=== PATIENT | female | born 1980 | race Caucasian/White ===

== ENCOUNTER 2017-03-13 18:22 | Inpatient (IN) | payer OTHER ==
[~2017-03-13] VITALS: Ht 170.2 cm; Wt 68.0 kg
--- NOTE | 2017-03-13 18:39 | NUR ---
PT STATES SHE IS GOING THROUGHT WITHDRAWELS FROM ETOH. PT STATES LAST DRINK WAS THIS AM SHE HAD 3 BEERS. PT STATES THE REHAB CENTER SENT HER HERE BECAUSE SHE IS HAVING THE SHAKES AND VOMITING. PT STATES SHE HAS HAD WITHDRAWEL SEIZURES MAY OF LAST YEAR. PT HAS BEEN DOING IOP AT [facility] SO SHE WAS TRYING TO CHECK INTO REHAB FOR 21 DAYS BUT STATES THEY THOUGHT SHE NEEDED TO GO TO ED. PT STATE THEY TOLD HER ONCE SHE IS MEDICALY CLEARED THEY WOULD TAKE SEND A CAR FOR HER FOR HER 21 DAYS PROGRAM
--- NOTE | 2017-03-13 18:40 | NUR ---
PT DENIES SI/HI
--- NOTE | 2017-03-13 19:06 | ED PSYCHIATRIC COMPLAINT ---
History of Present Illness General Chief Complaint: ETOH/Drug Related Complaint Stated Complaint: DETOX Source: patient Exam Limitations: no limitations Vital Signs & Intake/Output Vital Signs & Intake/Output Vital Signs Date Time Temp Pulse Resp B/P B/P Pulse O2 O2 Flow FiO2 Mean Ox Delivery Rate 03/14 0620 97.7 82 18 161/80 05 0615 97.7 82 18 161/80 98 Room Air 03/14 0420 97.0 88 18 153/85 03/14 0412 97.0 88 18 153/85 98 Room Air 03/14 0200 97.6 101 20 144/90 03/14 0200 97.6 101 20 144/90 97 Room Air Room Air 03/14 0038 96.9 115 18 156/97 96 Room Air 03/14 0020 96.9 115 18 156/97 03/13 2220 98.0 98 16 162/98 03/13 1952 98.2 99 20 147/75 03/13 1840 98.7 130 16 144/94 97 Room Air ED Intake and Output 03/14 0000 03/13 1200 Intake Total Output Total Balance Patient 150 lb Weight Weight Reported by Patient Measurement Method Allergies Coded Allergies: No Known Allergies (03/13/17) Reconcile Medications Chlordiazepoxide HCl 10 MG CAPSULE 1 TAB PO TID ANXIETY (Reported) Fluticasone Propionate 50 MCG/ACTUATION SPRAY.SUSP 2 SPRAY NASB DAILY CONGESTION (Reported) Folic Acid 1 MG TABLET 1 TAB PO DAILY VITAMIN (Reported) Quetiapine Fumarate 25 MG TABLET 1 TAB PO QPM ANXIETY (Reported) Triage Note: PT STATES SHE IS GOING THROUGHT WITHDRAWELS FROM ETOH. PT STATES LAST DRINK WAS THIS AM SHE HAD 3 BEERS. PT STATES THE REHAB CENTER SENT HER HERE BECAUSE SHE IS HAVING THE SHAKES AND VOMITING. PT STATES SHE HAS HAD WITHDRAWEL SEIZURES MAY OF LAST YEAR. PT HAS BEEN DOING IOP AT [facility] SO SHE WAS TRYING TO CHECK INTO REHAB FOR 21 DAYS BUT STATES THEY THOUGHT SHE NEEDED TO GO TO ED. Triage Nurses Notes Reviewed? yes Onset: Gradual Duration: week(s): Timing: recent history Severity: moderate Associated Symptoms: "I'm an alcoholic and need detox." : No Patient currently breastfeeds: No HPI: 37-year-old woman presents seeking alcohol detox. She states that, "I want to detox place and they told me to come here so that I could detox and then I can go inpatient tomorrow." She states that she often drinks a bottle of wine. Her last drink was 3 beers earlier today. She denies other drugs. She denies suicidality, homicidality, hallucinations. She does note that she had a seizure back in May. (EMMA IM,CARSON Hurtado) Past History Travel History Traveled to [place] past 21 day No Medical History Any Pertinent Medical History? see below for history Psychiatric: anxiety, Alcoholism Surgical History Surgical History: none Psychosocial History What is your primary language Malay Tobacco Use: Never used ETOH Use: alcoholic Illicit Drug Use: denies illicit drug use Family History Hx Contributory? No (EMMA MI,CARSON Hurtado) Review of Systems Review of Systems Constitutional: Reports: no symptoms. EENTM: Reports: no symptoms. Respiratory: Reports: no symptoms. Cardiovascular: Reports: no symptoms. GI: Reports: no symptoms. Genitourinary: Reports: no symptoms. Musculoskeletal: Reports: no symptoms. Skin: Reports: no symptoms. Neurological/Psychological: Reports: no symptoms. Hematologic/Endocrine: Reports: no symptoms. Immunologic/Allergic: Reports: no symptoms. All Other Systems: Reviewed and Negative (CARSON CARTER MD) Physical Exam Physical Exam General Appearance: well developed/nourished, mild distress Head: atraumatic Eyes: Bilateral: normal appearance. Ears, Nose, Throat: normal pharynx, normal ENT inspection, hearing grossly normal Neck: normal inspection, supple Respiratory: normal breath sounds Cardiovascular: regular rate/rhythm Gastrointestinal: soft, non-tender Extremities: normal range of motion Neurological/Psychiatric: no motor/sensory deficits, awake, anxious Appearance/Memory/Insight: disheveled Behavoir/Eye Contact/Speech: cooperative Thoughts/Hallucinations: normal thought pattern Skin: intact, normal color, warm/dry SAD PERSONS Done? patient not suicidal (EMMA MI,CARSON Hurtado) Progress Differential Diagnosis: alcohol intoxication versus dependence versus other Plan of Care: Orders Procedure Date/time Status Admit to inpatient 03/14 0723 Active Add-on Test (ER Only) 03/13 1939 Active Pathway - chart 03/13 1905 Active CIWA 03/13 1905 Active HUMAN BETA HCG SCREEN 03/13 1855 Complete URINE DRUG SCREEN FOR ER ONLY 03/13 185 Complete ETHANOL 03/13 1851 Complete COMPREHENSIVE METABOLIC PANEL 03/13 1851 Complete CBC WITHOUT DIFFERENTIAL 03/13 1851 Complete Current Medications Sig/Valeri Start time Last Medication Dose Stop Time Status Admin Ondansetron HCl 4 MG Q4-6 PRN PRN 03/13 2330 AC (Zofran) Lorazepam 2 MG Q2P PRN 03/13 1915 AC 03/14 (Ativan) 0705 Lorazepam 1 MG Q2P PRN 03/13 1915 AC 03/13 (Ativan) 2235 Laboratory Tests 03/13/17 2104: Urine Opiates Screen < 100.00, Methadone Screen < 40, Barbiturate Screen < 60, Ur Phencyclidine Scrn < 6.00, Amphetamines Screen < 100, U Benzodiazepines Scrn > 800 H, Urine Cocaine Screen < 50, Urine Cannabis Screen < 5.00 03/13/171854: Anion Gap 18 H, Estimated GFR > 60, BUN/Creatinine Ratio 6.7 L, Glucose 98, Calcium 9.4, Total Bilirubin 1.0, AST 96 H, ALT 94 H, Alkaline Phosphatase 84, Total Protein 8.8 H, Albumin 5.4 H, Globulin 3.4, Albumin/Globulin Ratio 1.6, Total Beta HCG NEGATIVE, CBC w Diff NO MAN DIFF REQ, RBC 4.26, MCV 91.5, MCH 31.8 H, RDW 14.7 H, MPV 6.6 L, Gran % 57.4, Lymphocytes % 32.2, Monocytes % 9.1, Eosinophils % 0.5, Basophils % 0.8, Absolute Granulocytes 1.8, Absolute Lymphocytes 1.0 L, Absolute Monocytes 0.3, Absolute Eosinophils 0, Absolute Basophils 0, PUBS MCHC 34.7, Serum Alcohol 95.0 Hand-Off Endorsed To: MONICA MI,JAMI Victoria Endorsed Time: 0700 Pending: other (in pt detox) (EMMA MI,CARSON Hurtado) Departure Departure Disposition: STILL A PATIENT Condition: Stable Clinical Impression Primary Impression: Alcoholism Departure Forms: Customer Survey General Discharge Information Comments Discussed with Dr. Hoskins. Patient to be discharged in the morning to be transferred to [facility] for further care. (EMMA MI,CARSON Hurtado) Admission Note Spoke With: NEEL PATEL MD Documentation of Exam: Documentation of any treatments & extenuating circumstances including Concerns Regarding Discharge (functional status, medication knowledge or non-compliance, living conditions, etc.) that warrant an admission rather than observation: [PT WAS SENT FROM REHAB FOR MEDICAL EVALUATION FOR POTENTIAL DETOX FOR ALCOHOL DEPENDENCY. SINCE BEING HERE IN THE ER, HER CIWA SCORES HAVE BEEN 10-14 DESPITE RECEIVING ATIVAN. SHE WILL BE ADMITTED TO THE MEDICAL SERVICE FOR ALCOHOL DEPENDENCY IN ACUTE WITHDRAWL. ONCE SHE IS MEDICALLY STABLE, SHE MAY GO TO [facility] FOR INPATIENT REHAB.] Alcohol Withdrawl Admission ED Alcohol Detox Admission d/t: CIWA Score >15 (CIWA 10-14), DTs/Seizure w/i last year (MONICA MI,JAMI Victoria)
[2017-03-13 19:37] LABS: ABSOLUTE BASOPHIL COUNT 0 /CUMM (0.0-0.2); ABSOLUTE EOSINOPHIL COUNT 0 /CUMM (0.0-0.7); ABSOLUTE GRANULOCYTE CT 1.8 /CUMM (1.4-6.5); ABSOLUTE MONOCYTE COUNT 0.3 /CUMM (0.10-0.60); BASOPHIL % 0.8 % (0.0-2.0); EOSINOPHIL % 0.5 % (0-5); GRANULOCYTE % 57.4 % (42.2-75.2); MEAN CORPUSCULAR HGB 31.8 PG (27.0-31.0); MEAN CORPUSCULAR HGB CONC 34.7 G/DL (33.0-37.0); MEAN CORPUSCULAR VOLUME 91.5 FL (81.0-99.0); MEAN PLATELET VOLUME 6.6 FL (7.4-10.4); PLATELET COUNT 113 /CUMM (130-400); RBC DISTRIBUTION WIDTH 14.7 % (11.5-14.5); RED BLOOD CELL CT 4.26 /CUMM (4.20-5.40); WHITE BLOOD CELL COUNT 3.2 /CUMM (4.8-10.8)
[2017-03-13 19:52] VITALS: BP 147/75
--- NOTE | 2017-03-13 20:18 | NUR ---
PT REPORTS THAT SHE IS SUPPPOSED TO GO TO [facility], PT IS NOT IN SEVERE WITHDRAWAL, CHANGED INTO HOSPITAL GARB, PAPER SCRUBS... PT IS RELUCTANT TO GIVE UP PHONE. PT HAS A SUITCASE, AND PERSONAL BRUSH, COMB AND PHONE. SECURITY AT [facility]. CHARGE NURSE AWARE WILL GO INTO SPEAK WITH PT.
--- NOTE | 2017-03-13 21:25 | NUR ---
PT REPORTS THAT SHE IS TOO SHAKY TO BE ALONE TO CHANGE, HOWEVER PT IS ABLE TO STAND ON 1 LEG TO PUT ON PANTS AND IS NOT AT ALL SHAKY.
[2017-03-13] MEDS ORDERED: QUETIAPINE FUMA25 M1 PO (21:26)
[2017-03-13] MEDS ORDERED: FOLIC ACID1 M1 PO (21:26)
[2017-03-13] MEDS ORDERED: CHLORDIAZEPOXID10 M2 PO (21:27)
[2017-03-13] MEDS ORDERED: FLUTICASONE PRO16 GM NASB (21:27)
[2017-03-13 22:20] VITALS: BP 162/98
--- NOTE | 2017-03-13 23:00 | NUR ---
PT MEDICATED WITH ATIVAN 1MG PO FOR W/D SYMPTOMS
[2017-03-14] VITALS (10 sets, daily range): BP systolic 124–161; BP diastolic 60–97
--- NOTE | 2017-03-14 00:20 | NUR ---
PATIENT NOTED W/ MINIMAL TREMORS, SITTER REMAINS W/ PATIENT. REGULAR RESPIRATIONS NOTED. REMAINS ON CIWA PROTOCOL.
--- NOTE | 2017-03-14 02:00 | NUR ---
VS TAKEN. TREMORS PRESENT. PT VERY SWEATY--REQUESTING ATIVAN SITTER AT DOOR
--- NOTE | 2017-03-14 08:19 | NUR ---
BED ASSIGNMENT [id number]
--- NOTE | 2017-03-14 08:56 | History & Physical ---
HARISLEIA 03/14/17 0855: General Information and HPI MD Statement: I have seen and personally examined JUAN SOARES and documented this H&P. The patient is a 37 year old F who presented with a patient stated chief complaint of [ALCOHOL WITHDRAWAL]. Source of Information: patient Exam Limitations: no limitations History of Present Illness: This is a 37 years old lady without significant past medical history who is presenting to [facility] requesting detoxification from alcohol. Patient has had 2 other admissions to [facility] in [facility] during one of the episodes of which she had a withdrawal seizure. She volunteers that she drinks alcohol about a bottle of wine a day, the last drink was on the morning of the day of admission where she took 3 beers. 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 She reports nausea and vomiting and vomited once yesterday but reports that the contrast in prone helped her have less nausea, she has no fever but reports chills, no chest pain she reports palpitation no abdominal pain dizziness or lightheadedness. The patient denies any suicidal or homicidal ideations. Allergies/Medications Allergies: Coded Allergies: No Known Allergies (03/13/17) Home Med list Chlordiazepoxide HCl 10 MG CAPSULE 1 TAB PO TID ANXIETY (Reported) Fluticasone Propionate 50 MCG/ACTUATION SPRAY.SUSP 2 SPRAY NASB DAILY CONGESTION (Reported) Folic Acid 1 MG TABLET 1 TAB PO DAILY VITAMIN (Reported) Quetiapine Fumarate 25 MG TABLET 1 TAB PO QPM ANXIETY (Reported) Past History Travel History Traveled to [place] past 21 day No Medical History Psychiatric: anxiety, Alcoholism Surgical History Surgical History: appendectomy Past Family/Social History Family History Relations & Conditions if any FATHER (Diabetes mellitus). Psychosocial History ETOH Use: alcoholic Illicit Drug Use: denies illicit drug use Review of Systems Review of Systems Constitutional: Reports: chills. Denies: fever, weakness. EENTM: Denies: no symptoms. Cardiovascular: Reports: palpitations. Denies: chest pain. Respiratory: Denies: cough, short of breath. GI: Reports: nausea, vomiting. Denies: abdominal pain. Genitourinary: Denies: no symptoms. Musculoskeletal: Denies: no symptoms. All Other Systems: Reviewed and Negative Exam & Diagnostic Data Last 24 Hrs of Vital Signs/I&O Vital Signs Date Time Temp Pulse Resp B/P B/P Pulse O2 O2 Flow FiO2 Mean Ox Delivery Rate 03/14 0826 97.9 96 16 149/63 03/14 0824 97.9 96 16 149/63 99 Room Air 03/14 0620 97.7 82 18 161/80 03/14 0615 97.7 82 18 161/80 98 Room Air 03/14 0420 97.0 88 18 153/85 03/14 0412 97.0 88 18 153/85 98 Room Air 03/14 0200 97.6 101 20 144/90 03/14 0200 97.6 101 20 144/90 97 Room Air Room Air 03/14 0038 96.9 115 18 156/97 96 Room Air 03/14 0020 96.9 115 18 156/97 03/13 2220 98.0 98 16 162/98 03/13 1952 98.2 99 20 147/75 03/13 1840 98.7 130 16 144/94 97 Room Air Intake & Output 03/14 1600 03/14 0800 03/14 0000 Intake Total Output Total Balance Patient 150 lb Weight Weight Reported by Patient Measurement Method Physical Exam General Appearance Alert, Oriented X3, Cooperative, No Acute Distress Skin No Rashes, scratching herself due to itching Skin Temp/Moisture Exam: Warm/Dry Sepsis Skin Exam (color): Normal for Ethnicity HEENT Atraumatic, PERRLA, dry mucous membranes Neck Supple, No JVD Cardiovascular Regular Rate, Normal S1, Normal S2, No Murmurs Lungs Clear to Auscultation, Normal Air Movement Abdomen Normal Bowel Sounds, Soft, No Tenderness Neurological Normal Gait, Normal Speech, Normal Tone Extremities No Clubbing, No Cyanosis, No Edema, tremors Vascular Normal Pulses Last 24 Hrs of Labs/August: Laboratory Tests 03/13/174: Urine Opiates Screen < 100.00, Methadone Screen < 40, Barbiturate Screen < 60, Ur Phencyclidine Scrn < 6.00, Amphetamines Screen < 100, U Benzodiazepines Scrn > 800 H, Urine Cocaine Screen < 50, Urine Cannabis Screen < 5.00 03/13/17 1855: Anion Gap 18 H, Estimated GFR > 60, BUN/Creatinine Ratio 6.7 L, Glucose 98, Calcium 9.4, Magnesium 1.5 L, Total Bilirubin 1.0, AST 96 H, ALT 94 H, Alkaline Phosphatase 84, Total Protein 8.8 H, Albumin 5.4 H, Globulin 3.4, Albumin/Globulin Ratio 1.6, Total Beta HCG NEGATIVE, CBC w Diff NO MAN DIFF REQ, RBC 4.26, MCV 91.5, MCH 31.8 H, RDW 14.7 H, MPV 6.6 L, Gran % 57.4, Lymphocytes % 32.2, Monocytes % 9.1, Eosinophils % 0.5, Basophils % 0.8, Absolute Granulocytes 1.8, Absolute Lymphocytes 1.0 L, Absolute Monocytes 0.3, Absolute Eosinophils 0, Absolute Basophils 0, PUBS MCHC 34.7, Serum Alcohol 95.0 Diagnostic Data Other Results Alcohol level high at 90 Assessment/Plan Assessment: This is a 37 years old lady without significant past medical history with alcohol or excessive alcohol consumption who has had 2 episodes of IOP alcohol withdrawal experiences seizures in one of the episodes were presented requesting alcohol detoxification. Patient CIWA has been between 8 and 10 highest of 14 scoring mostly for tremors and anxiety she has received a total of 5 mg of when necessary Ativan. Blood work is significant for very low BUN of 4 and anion gap of 18, alcohol level of 90 Problem list Alcohol withdrawal Thrombocytopenia Transaminitis Mild dehydration with anion gap Admit the patient to general medicine floor, vital signs every shift CIWA protocol, CIWA scoring every 2 EKG to establish baseline Ativan 2 mg every 6 standing order and Ativan 1 mg IV every 1 hr when necessary per CIWA Add magnesium to admission labs and correct to maintain level above 2 Repeat liver function test a.m. follow-up on transaminitis As Ranked By This Provider Problem List: 1. Alcohol withdrawal 2. Transaminitis 3. Dehydration Core Measures/Miscellaneous Acute Coronary Syndrome ACS Diagnosis: No Cerebrovascular Accident CVA/TIA Diagnosis: No Congestive Heart Failure CHF Diagnosis: No Venous Thromboembolism VTE Risk Factors: Acute medical illness No [facility] VTE prophylaxis d/t: No contraindications No VTE Pharm Prophylaxis d/t: No contraindications VTE Diagnosis: No VTE Type: NONE VTE Confirmed by (Test): NONE Severe Sepsis Severe Sepsis Present: No Septic Shock Septic Shock Present: No Miscellaneous Documentation Attending Case Discussed With: NEEL PATEL MD Primary Care Physician: PATIENT HAS NO PRIMARY CARE DR Patient sees these Specialists None Level of Patient Care: General Medicine Resident Review Statement Resident Statement: my review and discussion as above NEEL PATEL MD 03/14/17 1245: Attending MD Review Statement Attending Statement Attending MD Statement: examined this patient, discuss w/resident/PA/EDITOR SCHOOL PHOTOGRAPH, agreed w/resident/PA/EDITOR SCHOOL PHOTOGRAPH, reviewed EMR data (avail), reviewed images Attending Assessment/Plan: 37-year-old female past medical history of alcohol abuse usually gets her care at the [facility] [place], also history of withdrawal seizures last year she is here with acute alcohol withdrawal. Her withdrawal score per the CIWA meets criteria for inpatient admission. At this point will bring her into GEN med and give Ativan 2 mg every 6 [id number]. We'll use IV Ativan per CIWA. She is dehydrated as evidenced by the anion gap and the high albumin. We'll give her the IV banana bag which has fluids in it. We'll check an EKG to follow under QTC and make sure that she doesn't have underlying LVH. I think the blood pressure is all from withdrawal. We'll give her DVT prophylaxis and she'll need social work consult to set her up for alcohol dependence treatment when stable.
--- NOTE | 2017-03-14 09:22 | NUR ---
REPORT TO KAVEH WILD.
--- NOTE | 2017-03-14 12:45 | Admission Certification ---
Admission Certification Certification Statement - As attending physician, I certify that at the time of - admission, based on clinical presentation, severity of - symptoms, need for further diagnostic testing and - therapeutic interventions, and risk of adverse outcomes - without in-hospital treatment, in my clinical assessment, - this patient requires an acute hospital stay for a minimum - of two nights or longer. I have also considered psychsocial - factors such as support system, advanced age, financial - issues, cognitive issues, and failed out-patient treatments, - past re-admission history, safety of patient, and lack of - compliance as applicable. Specific rationale supporting this admission is: Acute alcohol withdrawal needs Ativan [id number].
--- NOTE | 2017-03-14 17:19 | NUR ---
PT REQUESTED CELL PHONE, BELONGINGS BAG OPENED TO RETRIEVE PHONE WITH ELPIDIO ALLEN, ALL CONTENTS PLACED IN NEW SEALED BAG AND PHONE AND TELEMARKETING SUPERVISOR GIVEN TO PT.
[2017-03-15] VITALS (9 sets, daily range): BP systolic 126–142; BP diastolic 70–90
[2017-03-15 08:22] LABS: ABSOLUTE BASOPHIL COUNT 0 /CUMM (0.0-0.2); ABSOLUTE EOSINOPHIL COUNT 0.1 /CUMM (0.0-0.7); ABSOLUTE GRANULOCYTE CT 1.4 /CUMM (1.4-6.5); ABSOLUTE LYMPH COUNT 0.8 /CUMM (1.2-3.4); ABSOLUTE MONOCYTE COUNT 0.2 /CUMM (0.10-0.60); BASOPHIL % 0.8 % (0.0-2.0); EOSINOPHIL % 2.4 % (0-5); GRANULOCYTE % 55.9 % (42.2-75.2); HEMATOCRIT 38.5 % (37-47); MEAN CORPUSCULAR HGB 31.6 PG (27.0-31.0); MEAN CORPUSCULAR HGB CONC 34.7 G/DL (33.0-37.0); MEAN CORPUSCULAR VOLUME 91.1 FL (81.0-99.0); MEAN PLATELET VOLUME 7.3 FL (7.4-10.4); RBC DISTRIBUTION WIDTH 14.6 % (11.5-14.5); RED BLOOD CELL CT 4.22 /CUMM (4.20-5.40); WHITE BLOOD CELL COUNT 2.4 /CUMM (4.8-10.8)
[2017-03-15 08:25] LABS: PT 11.8 SEC (9.4-12.5)
--- NOTE | 2017-03-15 08:29 | PN- Housestaff ---
KENYETTA MI,AMANDEEP 03/15/17 0828: Subjective Follow-up For: Alcohol detoxification Subjective: I saw and examined the patient today morning She is doing well. No overnight issues. CIWA scores trended 0-4. Review of Systems Constitutional: Reports: see HPI. Comments: ROS negative except the above. Objective Last 24 Hrs of Vital Signs/I&O Vital Signs Date Time Temp Pulse Resp B/P B/P Pulse O2 O2 Flow FiO2 Mean Ox Delivery Rate 03/15 0647 98.2 86 16 142/90 100 Room Air 03/15 0200 98.6 88 16 140/86 96 Room Air 03/14 2209 98.9 105 20 124/60 97 Room Air 03/14 2200 98.9 105 124/60 03/14 2028 98.5 96 03/14 1801 99.5 111 19 130/80 97 Room Air 03/14 1400 98.7 97 18 130/80 03/14 1400 98.7 97 18 130/80 97 Room Air 03/14 1115 99.8 96 18 150/90 03/14 1115 99.8 96 18 150/90 98 Room Air 03/14 1016 98.8 94 18 136/82 98 Intake & Output 03/15 1600 03/15 0800 03/15 0000 Intake Total 100 Output Total Balance 100 Intake, Oral 100 Physical Exam General Appearance: Alert, Oriented X3, Cooperative, No Acute Distress Skin: No Rashes, No Breakdown HEENT: Atraumatic, PERRLA Neck: Supple Cardiovascular: Normal S1, Normal S2 Lungs: Clear to Auscultation, Normal Air Movement Abdomen: Normal Bowel Sounds, Soft, No Tenderness Neurological: Normal Gait, Normal Speech, Strength at 5/5 X4 Ext, Normal Tone, Sensation Intact Extremities: No Clubbing, No Cyanosis, No Edema Current Medications: Current Medications Sig/Valeri Start time Last Medication Dose Route Stop Time Status Admin Acetaminophen 650 MG Q6P PRN 03/14 1200 AC PO Acetaminophen 1,000 MG Q6P PRN 03/14 1200 AC IV Cyanocobalamin/ 1 BAG DAILY 03/14 1000 AC 03/14 Thiamine/Pyridoxine IV 03/16 1759 1108 Dextrose/Water 1,000 ML Diphenhydramine HCl 25 MG Q6P PRN 03/14 0930 AC PO Enoxaparin Sodium 40 MG DAILY 03/14 1000 AC 03/14 SC 1108 Folic Acid 1 MG DAILY 03/14 1000 DC PO 03/16 1001 Ibuprofen 600 MG Q6P PRN 03/14 1200 DC PO Lorazepam 2 MG Q6 03/14 1200 DC 03/15 PO 03/15 0001 0002 Lorazepam 0 Q1P PRN 03/14 1100 AC 03/14 IV 1118 Lorazepam 0 .STK-MED ONE 03/14 0836 DC PO Lorazepam 2 MG Q2P PRN 03/13 1915 DC 03/14 PO 0705 Lorazepam 1 MG Q2P PRN 03/13 1915 DC 03/14 PO 0845 Magnesium Oxide 800 MG ONE ONE 03/14 1145 DC 03/14 PO 03/14 1146 1327 Multivitamins 1 TAB DAILY 03/15 1000 AC PO Multivitamins 1 TAB DAILY 03/14 1000 DC PO Ondansetron HCl 4 MG .STK-MED ONE 03/14 1127 DC PO 03/14 1128 Ondansetron HCl 4 MG .STK-MED ONE 03/14 1100 DC IM 03/14 1101 Ondansetron HCl 4 MG Q4-6 PRN PRN 03/13 2330 AC 03/14 PO 1152 Thiamine HCl 100 MG DAILY 03/14 1000 CAN PO 03/16 1001 Last 24 Hrs of Lab/August Results Last 24 Hrs of Labs/Mics: Laboratory Tests 03/15/17 0720: Anion Gap 12, Estimated GFR > 60, BUN/Creatinine Ratio 10.0, Magnesium 1.9, PT 11.8, INR 1.13, CBC w Diff NO MAN DIFF REQ, RBC 4.22, MCV 91.1, MCH 31.6 H, RDW 14.6 H, MPV 7.3 L, Gran % 55.9, Lymphocytes % 31.1, Monocytes % 9.8 H, Eosinophils % 2.4, Basophils % 0.8, Absolute Granulocytes 1.4, Absolute Lymphocytes 0.8 L, Absolute Monocytes 0.2, Absolute Eosinophils 0.1, Absolute Basophils 0, PUBS MCHC 34.7 Assessment/Plan Assessment: Patient is a 37 YO F with PMH significant for Alcohol consumption who presented with 2 episodes of IOP alcohol alcohol withdrawal experiences seizures in one of the episodes were presented requesting alcohol detoxification. At admission CIWA has been between 8 and 10 highest of 14 scoring mostly for tremors and anxiety she has received a total of 5 mg of when necessary Ativan. Blood work is significant for very low BUN of 4 and anion gap of 18, alcohol level of 90. Plan Alchol Detoxification * CIWA Protocol - ativan 2mg Q6hrs and Ativan 1mg Q1hr started * Her CIWA scores trended down between 0-4 overnight * Tapered 20% of ativan - today on 1.5mg Q6 while continuing 1mg Q1hr PRN * Tolerating diet well. * She is already scheduled to go for a IOP program but they denied as her labs show alcohol, after she detoxes - eventually transfers to that place. 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 Transaminitis 2. Alcohol withdrawal Pain Ratin Pain Location: n/a Pain Goal: Pain 4 or less Pain Plan: tylenol prn Tomorrow's Labs & Rationales: bep to monitor electrolytes in alcohol withdrawl patient cbc to monitor thrombocytopenia Lfts to trend acute vs chronic transaminitis NEEL PATEL MD 03/15/17 1027: Attending MD Review Statement Attending Statement Attending MD Statement: examined this patient, discuss w/resident/PA/TRAY SERVICE WORKER, agreed w/resident/PA/TRAY SERVICE WORKER, reviewed EMR data (avail), reviewed images Attending Assessment/Plan: Acute alcohol withdrawal with history of alcohol withdrawal seizures. We are cutting the Ativan by 20-25% every day and today we'll have her on 1.5mg every 6 from 2mg every 6 yesterday with the when necessary Ativan as needed per CIWA. Her platelet count and white count have decreased. I believe this is all from alcoholic liver disease and that she was profoundly dehydrated when she came in. We'll stop the Lovenox and put her on Alps. The coags are normal there is no evidence of DIC and will follow closely.
[2017-03-15 09:21] LABS: PLATELET COUNT 63 /CUMM (130-400)
[2017-03-16 06:50] VITALS: BP 140/90
--- NOTE | 2017-03-16 07:06 | PN- Housestaff ---
KENYETTA MI,AMANDEEP 03/16/17 0705: Subjective Follow-up For: Alcohol withdrawl Subjective: I saw and examined the patient today morning She is doing well, no overnight events. Wants to go home Review of Systems Constitutional: Reports: see HPI. Comments: ROS negative except the above. Objective Last 24 Hrs of Vital Signs/I&O Vital Signs Date Time Temp Pulse Resp B/P B/P Pulse O2 O2 Flow FiO2 Mean Ox Delivery Rate 03/16 0650 97.8 96 16 140/90 100 Room Air 03/15 2254 99.2 90 19 130/80 99 Room Air 03/15 2000 102 16 130/70 03/15 1911 99.2 109 19 126/80 100 Room Air 03/15 1600 97.9 94 15 134/80 03/15 1527 98.5 100 16 130/80 99 03/15 1400 98.5 100 16 130/80 03/15 1000 98.4 100 18 130/80 Intake & Output 03/16 0800 03/16 0000 03/15 1600 Intake Total 2000 1100 Output Total Balance 1999 1100 Intake, IV 500 500 Intake, Oral 1500 600 Physical Exam General Appearance: Alert, Oriented X3, Cooperative, No Acute Distress Skin: No Rashes, No Breakdown HEENT: Atraumatic, PERRLA Neck: Supple Cardiovascular: Normal S1, Normal S2 Lungs: Clear to Auscultation, Normal Air Movement Abdomen: Normal Bowel Sounds, Soft, No Tenderness Neurological: Normal Gait, Normal Speech, Strength at 5/5 X4 Ext, Normal Tone Extremities: No Clubbing, No Cyanosis, No Edema Vascular: Normal Pulses, Pulses Symmetrical Current Medications: Current Medications Sig/Valeri Start time Last Medication Dose Route Stop Time Status Admin Acetaminophen 650 MG Q6P PRN 03/14 1200 AC PO Acetaminophen 1,000 MG Q6P PRN 03/14 1200 AC IV Cyanocobalamin/ 1 BAG DAILY 03/14 1000 AC 03/15 Thiamine/Pyridoxine IV 03/16 1759 1211 Dextrose/Water 1,000 ML Diphenhydramine HCl 25 MG Q6P PRN 03/14 0930 AC PO Enoxaparin Sodium 40 MG DAILY 03/14 1000 DC 03/14 SC 1108 Lorazepam 1.5 MG Q6 03/15 1200 AC 03/16 PO 0636 Lorazepam 0 Q1P PRN 03/14 1100 AC 03/14 IV 1118 Magnesium Oxide 400 MG ONE ONE 03/15 1030 DC 03/15 PO 03/15 1031 1211 Multivitamins 1 TAB DAILY 03/15 1000 AC 03/15 PO 1211 Ondansetron HCl 4 MG Q4-6 PRN PRN 03/13 2330 AC 03/14 PO 1152 Potassium Chloride 40 MEQ ONCE ONE 03/15 0945 DC 03/15 PO 03/15 0946 1211 Last 24 Hrs of Lab/August Results Last 24 Hrs of Labs/Mics: Laboratory Tests 03/16/17 0710: Anion Gap 13, Estimated GFR > 60, BUN/Creatinine Ratio 11.7, Total Bilirubin 0.9 , Direct Bilirubin 0.3, AST 82 H, ALT 73 H, Alkaline Phosphatase 64, Total Protein 7.2, Albumin 4.3, CBC w Diff NO MAN DIFF REQ, RBC 4.12 L, MCV 92.0, MCH 31.5 H, RDW 14.7 H, MPV 7.4, Gran % 58.8, Lymphocytes % 27.8, Monocytes % 10.3 H, Eosinophils % 2.6, Basophils % 0.5, Absolute Granulocytes 1.8, Absolute Lymphocytes 0.9 L, Absolute Monocytes 0.3, Absolute Eosinophils 0.1, Absolute Basophils 0, PUBS MCHC 34.2 Assessment/Plan Assessment: Patient is a 37 YO F with PMH significant for Alcohol consumption who presented with 2 episodes of IOP alcohol alcohol withdrawal experiences seizures in one of the episodes were presented requesting alcohol detoxification. At admission CIWA has been between 8 and 10 highest of 14 scoring mostly for tremors and anxiety she has received a total of 5 mg of when necessary Ativan. Blood work is significant for very low BUN of 4 and anion gap of 18, alcohol level of 90. Plan Alchol Detoxification * CIWA Protocol * Her CIWA score between 0-4 overnight * Tapered 20% of ativan - Ativan 1.5mg TID -->1mg TID-->1mg BID-->1mg daily * Tolerating diet well. * She is already scheduled to go for a IOP program but they denied as her labs show alcohol, after she detoxes - eventually transfers to that place. 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 Alcohol withdrawal 2. Transaminitis Pain Ratin Pain Location: n/a Pain Goal: Pain 4 or less Pain Plan: tylenol prn Tomorrow's Labs & Rationales: none NEEL PATEL MD 03/16/17 1404: Attending MD Review Statement Attending Statement Attending MD Statement: examined this patient, discuss w/resident/PA/DIAMOND SORTER, agreed w/resident/PA/DIAMOND SORTER, reviewed EMR data (avail), discussed with nursing, reviewed images Attending Assessment/Plan: Patient is very anxious about posthospitalization rehabilitation. She says that her father is helping her secure an inpatient rehabilitation place. I explained that we are rapidly tapering the Ativan by 20-25% a day and will talk to social science teacher about the earliest that she can leave.
[2017-03-16 08:20] LABS: ABSOLUTE BASOPHIL COUNT 0 /CUMM (0.0-0.2); ABSOLUTE EOSINOPHIL COUNT 0.1 /CUMM (0.0-0.7); ABSOLUTE GRANULOCYTE CT 1.8 /CUMM (1.4-6.5); ABSOLUTE LYMPH COUNT 0.9 /CUMM (1.2-3.4); ABSOLUTE MONOCYTE COUNT 0.3 /CUMM (0.10-0.60); BASOPHIL % 0.5 % (0.0-2.0); EOSINOPHIL % 2.6 % (0-5); GRANULOCYTE % 58.8 % (42.2-75.2); HEMATOCRIT 37.9 % (37-47); MEAN CORPUSCULAR HGB 31.5 PG (27.0-31.0); MEAN CORPUSCULAR HGB CONC 34.2 G/DL (33.0-37.0); MEAN PLATELET VOLUME 7.4 FL (7.4-10.4); PLATELET COUNT 68 /CUMM (130-400); RBC DISTRIBUTION WIDTH 14.7 % (11.5-14.5); RED BLOOD CELL CT 4.12 /CUMM (4.20-5.40); WHITE BLOOD CELL COUNT 3.1 /CUMM (4.8-10.8)
--- NOTE | 2017-03-16 11:00 | NUR ---
Pt is a 37 y.o. s/w/f referred for sw consult for ETOH dependency and treatment needs. Sw to pt room finds her managing paperwork. She presents with some irrtablity which is redirectable with support and validation. Pt reports she was at [facility] when she was referred to [facility] for inpt detox. Pt reports a seizure 05/2016 during withdrawal which she explains was related to being on Effexor and ETOH. Sw provided education on the importance of safe detox including safe taper off benzo which is used to tx sx. Also discussed most rehabs require Ativan taper be complete out of rehab facility because they dont allow benzo in facility. Pt reports she is anxious to go to rehab and start her recovery. Pt reports her father has payed 3,500 dollars to [employer] and her insurance will cover the rest and it is all set. Pt reports she has quit her job as of March 02 and is working on [employer] for [facility] [employer] unemployment. She also owns two properties; one which is rented and the other she lives in and is gettng a new room mate this week. Pt's other roommate was a heavy drinker and not good for pt. 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 Pt reports she used ETOH to cope with her work stress. Pt recently had IOP [facility] for treatment [facility] which, was her longest sober- 90 days. Pt was prescribed Campel for 30 days and when done, she relapsed. She explains her relapse due to stressful life. Pt had a $45 copay 3x a week which her father paid for. Pt reports she is working to obtain new friends. She has been attending AA and has been building relationships with AA people who are encouraging treatment. Pt is working on a sponsor who is her friends mother. Pt reports her mother and other family members are heavy drinkers. Pt denies other substances and legal issues. Pt did not elaborate as to why she took Effexor. Pt idenifies her mother who, is an nurse and father as suports. Pt will return to [facility] for admission when medically stable and cleared.
[2017-03-16 14:12] VITALS: BP 142/80
--- NOTE | 2017-03-16 15:32 | NUR ---
Pt signed a release of information for [facility] where she plans to go when medically cleared. Call to Ar in intake finds him requesting H and P, med list and recent labs before admission to their program. Ar reports he will send a car for her if we given him notice. [facility] fax [phone] phone [phone]
[2017-03-16 22:29] VITALS: BP 130/80
[2017-03-17 06:43] VITALS: BP 144/96
--- NOTE | 2017-03-17 07:05 | PN- Housestaff ---
KENYETTA MI,AMANDEEP 03/17/17 0705: Subjective Follow-up For: Alcohol detoxification Subjective: I saw and examined the patient today morning She is sleeping well, No overnight events. CIWA scores 0-2. Review of Systems Constitutional: Reports: see HPI. Objective Last 24 Hrs of Vital Signs/I&O Vital Signs Date Time Temp Pulse Resp B/P B/P Pulse O2 O2 Flow FiO2 Mean Ox Delivery Rate 03/17 0643 98.3 96 16 144/96 99 Room Air 03/16 2229 97.3 92 20 130/80 95 Room Air 03/16 1412 98.9 96 20 142/80 98 Room Air Intake & Output 03/17 0800 03/17 0000 03/16 1600 Intake Total 100 200 600 Output Total Balance 100 200 600 Intake, Oral 100 200 600 Physical Exam General Appearance: Alert, Oriented X3, Cooperative Skin: No Rashes, No Breakdown HEENT: Atraumatic, PERRLA, EOMI Neck: Supple Cardiovascular: Normal S1, Normal S2 Lungs: Clear to Auscultation, Normal Air Movement Abdomen: Normal Bowel Sounds, Soft, No Tenderness Neurological: Normal Gait, Normal Speech, Strength at 5/5 X4 Ext, Normal Tone, Sensation Intact, Cranial Nerves 3-12 NL Extremities: No Clubbing, No Cyanosis Vascular: Normal Pulses, Pulses Symmetrical Current Medications: Current Medications Sig/Valeri Start time Last Medication Dose Route Stop Time Status Admin Acetaminophen 650 MG Q6P PRN 03/14 1200 AC PO Acetaminophen 1,000 MG Q6P PRN 03/14 1200 AC IV Cyanocobalamin/ 1 BAG DAILY 03/14 1000 DC 03/15 Thiamine/Pyridoxine IV 03/16 1759 1211 Dextrose/Water 1,000 ML Diphenhydramine HCl 25 MG Q6P PRN 03/14 0930 AC PO Folic Acid 1 MG DAILY 03/16 1000 AC 03/16 PO 1045 Lorazepam 1 MG ONE ONE 03/19 1000 AC PO 03/19 1001 Lorazepam 1 MG 0800,1700 03/18 0800 AC PO 03/19 0000 Lorazepam 1 MG TID 03/17 1000 AC PO 03/18 0000 Lorazepam 1.5 MG TID 03/16 1600 DC 03/16 PO 03/17 0000 2136 Lorazepam 1.5 MG Q6 03/15 1200 DC 03/16 PO 0636 Lorazepam 0 Q1P PRN 03/14 1100 AC 03/14 IV 1118 Multivitamins 1 TAB DAILY 03/15 1000 AC 03/16 PO 1045 Ondansetron HCl 4 MG Q4-6 PRN PRN 03/13 2330 AC 03/14 PO 1152 Patient Medication 1 ED .STK-MED ONE 03/16 1351 DC Teaching ED 03/16 1352 Potassium Chloride 40 MEQ ONCE ONE 03/16 0915 DC 03/16 PO 03/16 0916 1045 Thiamine HCl 100 MG DAILY 03/16 1000 AC 03/16 PO 1045 Last 24 Hrs of Lab/August Results Last 24 Hrs of Labs/Mics: Laboratory Tests 03/16/17 0710: Anion Gap 13, Estimated GFR > 60, BUN/Creatinine Ratio 11.7, Total Bilirubin 0.9 , Direct Bilirubin 0.3, AST 82 H, ALT 73 H, Alkaline Phosphatase 64, Total Protein 7.2, Albumin 4.3, CBC w Diff NO MAN DIFF REQ, RBC 4.12 L, MCV 92.0, MCH 31.5 H, RDW 14.7 H, MPV 7.4, Gran % 58.8, Lymphocytes % 27.8, Monocytes % 10.3 H, Eosinophils % 2.6, Basophils % 0.5, Absolute Granulocytes 1.8, Absolute Lymphocytes 0.9 L, Absolute Monocytes 0.3, Absolute Eosinophils 0.1, Absolute Basophils 0, PUBS MCHC 34.2 Assessment/Plan Assessment: Patient is a 37 YO F with PMH significant for Alcohol consumption who presented with 2 episodes of IOP alcohol alcohol withdrawal experiences seizures in one of the episodes were presented requesting alcohol detoxification. At admission CIWA has been between 8 and 10 highest of 14 scoring mostly for tremors and anxiety she has received a total of 5 mg of when necessary Ativan. Blood work is significant for very low BUN of 4 and anion gap of 18, alcohol level of 90. Plan Alchol Detoxification * [facility] Protocol * Her CIWA score between 0-2 -- appears well * Tapered 20% of ativan - Ativan 1.5mg TID -->1mg BID-->1mg once - quick as responding well. * She is already scheduled to go for a IOP program but they denied as her labs show alcohol, after she detoxes - eventually transfers to that place. 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 Alcohol withdrawal 2. Transaminitis Pain Ratin Pain Location: n/a Pain Goal: Pain 4 or less Pain Plan: tylenol prn Tomorrow's Labs & Rationales: none JORGE MI,NEEL 03/17/17 1224: Attending MD Review Statement Attending Statement Attending MD Statement: examined this patient, discuss w/resident/PA/SERVICE DISMANTLER, agreed w/resident/PA/SERVICE DISMANTLER, reviewed EMR data (avail), discussed with nursing, discussed with case mgmt, reviewed images Attending Assessment/Plan: Patient is anxious about leaving. She is very worried about the bed that her father has paid money to secure for inpatient alcohol rehabilitation. I reassured her that we would taper the Ativan fairly rapidly now that his CIWA scores are better. She will get her last dose of Ativan tomorrow at 8 AM and then she would be leaving here at 11 AM. She is acute alcohol withdrawal with a history of alcohol withdrawal seizures. And plan is discharge with outpatient follow-up.
--- NOTE | 2017-03-17 08:56 | Patient Discharge Instructions ---
Discharge Instructions General Discharge Information You were seen/treated for: Alcohol detoxification Special Instructions: [facility] Diet Continue normal diet: Yes Activity Full Activity/No Limits: Yes Acute Coronary Syndrome Inclusion Criteria At DC or during hospital stay patient has or had the following: ACS DIAGNOSIS No Discharge Core Measures Meds if any: Prescribed or Continued at Discharge Meds if any: NOT Prescribed or Continued at Discharge Congestive Heart Failure Inclusion Criteria At DC or during hospital stay patient has or had the following: CHF DIAGNOSIS No Discharge Core Measures Meds if any: Prescribed or Continued at Discharge Meds if any: NOT Prescribed or Continued at Discharge Cerebrovascular accident Inclusion Criteria At DC or during hospital stay patient has or had the following: CVA/TIA Diagnosis No Discharge Core Measures Meds if any: Prescribed or Continued at Discharge Meds if any: NOT Prescribed or Continued at Discharge Venous thromboembolism Inclusion Criteria VTE Diagnosis No VTE Type NONE VTE Confirmed by (Test) NONE Discharge Core Measures - Per Current guidelines, there needs to be overlap - treatment for the first 5 days of Warfarin therapy. - If discharged on Warfarin prior to 5 days of - overlap therapy, the patient will need to be - assessed for post discharge needs including - *Post discharge parental anticoagulation - *Warfarin and/or parental anticoagulation education - *Follow up date to check INR post discharge At least 5 days overlap therapy as Inpatient No Meds if any: Prescribed or Continued at Discharge Note: Overlap Therapy is Warfarin and Anticoagulant Meds if any: NOT Prescribed or Continued at Discharge Meds if any: NOT Prescribed or Continued at Discharge
[2017-03-17 10:00] VITALS: BP 128/80
[2017-03-17] MEDS ORDERED: VITAMIN B-1100 MG PO (12:01)
[2017-03-17] MEDS ORDERED: ONE DAILY MULT1 EAC2 PO (12:49)
[2017-03-17 14:00] VITALS: BP 118/72
[2017-03-17 14:32] VITALS: BP 118/72
--- NOTE | 2017-03-17 16:08 | NUR ---
Following patients progress as it relates to her detox. Patient's detox has been without incident and patient is scheduled to receive her last dose of ativan tomorrow morning. Patient has been accepted at [facility] tomorrow, and facility will provide transport for patient. Anticipated discharge time is 11:00am; Case discussed with Dr. Portillo and patient who is pleased with plan.
[2017-03-17 22:18] VITALS: BP 140/80
[2017-03-18 04:00] VITALS: BP 120/80
--- NOTE | 2017-03-18 07:14 | PN- Housestaff ---
Subjective Follow-up For: Alcohol detoxification Subjective: I saw and examined the patient today morning She is doing well, CIWA score are 0 so far. Unable to sleep well due to other patient in the same room. Review of Systems Constitutional: Reports: see HPI. Comments: ROS negative except the above. Objective Last 24 Hrs of Vital Signs/I&O Vital Signs Date Time Temp Pulse Resp B/P B/P Pulse O2 O2 Flow FiO2 Mean Ox Delivery Rate 03/18 0400 97.6 62 20 120/80 03/17 2218 98.0 92 20 140/80 98 Room Air 03/17 1432 98.9 84 20 118/72 94 03/17 1400 98.9 84 20 118/72 03/17 1000 98.2 94 18 128/80 Intake & Output 03/18 0800 03/18 0000 03/17 1600 Intake Total 800 Output Total Balance 800 Intake, Oral 800 Physical Exam General Appearance: Alert, Oriented X3, Cooperative Skin: No Rashes, No Breakdown HEENT: Atraumatic, PERRLA, EOMI Neck: Supple Cardiovascular: Normal S1, Normal S2 Lungs: Clear to Auscultation, Normal Air Movement Abdomen: Normal Bowel Sounds, Soft, No Tenderness Neurological: Normal Gait, Normal Speech, Strength at 5/5 X4 Ext, Normal Tone, Sensation Intact Extremities: No Clubbing, No Cyanosis, No Edema Current Medications: Current Medications Sig/Valeri Start time Last Medication Dose Route Stop Time Status Admin Acetaminophen 650 MG Q6P PRN 03/14 1200 AC PO Acetaminophen 1,000 MG Q6P PRN 03/14 1200 AC IV Diphenhydramine HCl 25 MG Q6P PRN 03/14 0930 AC PO Folic Acid 1 MG DAILY 03/16 1000 AC 03/17 PO 0957 Lorazepam 1 MG ONE ONE 03/19 1000 CAN PO 03/19 1001 Lorazepam 1 MG 0800,1700 03/18 0800 DC PO 03/19 0000 Lorazepam 1 MG 8AM 03/18 0800 AC PO Lorazepam 1 MG BID 03/17 2200 DC PO 03/18 0000 Lorazepam 1 MG ONCE ONE 03/17 1800 DC 03/17 PO 03/17 1801 1801 Lorazepam 1 MG TID 03/17 1000 DC 03/17 PO 03/18 0000 0958 Lorazepam 0 Q1P PRN 03/14 1100 AC 03/14 IV 1118 Multivitamins 1 TAB DAILY 03/15 1000 AC 03/17 PO 0957 Ondansetron HCl 4 MG Q4-6 PRN PRN 03/13 2330 AC 03/14 PO 1152 Potassium Chloride 40 MEQ ONCE ONE 03/17 0800 CAN PO 03/17 0801 Thiamine HCl 100 MG DAILY 03/16 1000 AC 03/17 PO 0957 Orders CIWA Score (last 24 hrs): 0 Assessment/Plan Assessment: Patient is a 37 YO F with PMH significant for Alcohol consumption who presented with 2 episodes of IOP alcohol alcohol withdrawal experiences seizures in one of the episodes were presented requesting alcohol detoxification. At admission CIWA has been between 8 and 10 highest of 14 scoring mostly for tremors and anxiety she has received a total of 5 mg of when necessary Ativan. Blood work is significant for very low BUN of 4 and anion gap of 18, alcohol level of 90. Plan Alchol Detoxification * CIWA Protocol * Her CIWA score between 0-2 -- appears well * Completed taper with 1mg ativan taken today morning. * Stable for discharge to [facility] program. 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 Transaminitis 2. Alcohol withdrawal Pain Ratin Pain Location: n/a Pain Goal: Pain 4 or less Pain Plan: tylenol prn Tomorrow's Labs & Rationales: none
[2017-03-18 07:30] VITALS: BP 130/80
--- NOTE | 2017-03-18 11:26 | NUR ---
Late Entry: Case discussed at [facility]'s this morning. Patient satable for discharge; ativan taper complete. Patient powell been discharged to [facility] [place]; paid attendant from facility has picked patient up for transport to their facility.
--- NOTE | 2017-03-18 13:27 | Discharge Summary ---
Visit Information Visit Dates Admission Date: 03/14/17 Discharge Date: 03/18/17 Hospital Course Course Attending Physician: JORGE MI,NEEL Dunbar Primary Care Physician: PATIENT HAS NO PRIMARY CARE DR Hospital Course: Patient is a 37 YO F with PMH significant for Alcohol consumption who presented with 2 episodes of IOP alcohol alcohol withdrawal experiences seizures in one of the episodes were presented requesting alcohol detoxification. At admission CIWA has been between 8 and 10 highest of 14 scoring mostly for tremors and anxiety she has received a total of 5 mg of when necessary Ativan. Blood work is significant for very low BUN of 4 and anion gap of 18, alcohol level of 90. Plan Alchol Detoxification She was started on CIWA protocol with schedulted and PRN ativan doses, tapered 20-25% a day. Her her CIWA scores trended down very fast scoring 0-4, 0-2, 0 on consequetive days, she was able to have a quick taper. Taper from to -- 10mg--> 6.5mg--> 4.5mg --> 2mg -->1mg (on and discharged). Patient is discharged to [facility] for alcohol withdrawl Thrombocytopenia and Leukopenia Her platelet count is 113 and white count is 3.2 - presumably secondary to alcoholic liver disease. Her platelets dropped from 113 -->63-->68. So stopped on SC lovenox & started on ALPS for DVT prophylaxis on 2nd day of hospitalization. High Blood Pressure Throughout the hospital course her Blood pressure was on a higher end for her age. It could be confounded with withdrawl at this moment. Need follow up with regular outpatient check ups. EKG - sinus rhythm with probable LVH -- needs follow up. DVT prophylaxis ALPS as mentioned above. Allergies: Coded Allergies: No Known Allergies (03/13/17) Significant Procedures: NONE Pertinent Lab Results: As above Disposition Summary Disposition Principal Diagnosis: Alcohol detoxification Additional Diagnosis: Thrombocytopenia and Leukopenia Discharge Disposition: home or self care Discharge Instructions General Discharge Information Code Status: Full Code Patient's Diet: Regular diet Patient's Activity: Full Activity Follow-Up Instructions/Appts: Please follow up with [facility] Medications at Discharge Discharge Medications: Stop taking the following medications: Chlordiazepoxide HCl (Chlordiazepoxide HCl) 10 MG CAPSULE ORAL THREE TIMES DAILY Qty = 30 Continue taking these medications: Folic Acid (Folic Acid) 1 MG TABLET 1 Tablet ORAL DAILY Qty = 30 Comments: Last Taken: 03/18/17 Time: 0900 AM Quetiapine Fumarate (Quetiapine Fumarate) 25 MG TABLET 1 Tablet ORAL Every night Qty = 60 Comments: NOT GIVEN Fluticasone Propionate (Fluticasone Propionate) 50 MCG/ACTUATION SPRAY.SUSP 2 [facility] Both sides of nose DAILY Qty = 16 Comments: NOT GIVEN Start taking the following new medications: Multivitamin (One Daily Multivitamin) 1 EACH TABLET 1 Tablet ORAL DAILY Qty = 30 No Refills Comments: Last Taken: 03/18/17 Time: 0900 AM Copies To: HEATHER MI,NA Attending MD Review Statement Documenting Attending: JORGE MI,NEEL Dunbar
--- NOTE | 2017-03-18 13:38 | PN- Att Addend ---
Attending MD Review Statement Attending Statement Attending MD Statement: examined this patient, discuss w/resident/PA/MULTIMEDIA ASSISTANT, agreed w/resident/PA/MULTIMEDIA ASSISTANT, reviewed EMR data (avail), discussed w/nursing, discussed w/ case mgmt Attending Assessment/Plan: Vital Signs Date Time Temp Pulse Resp B/P B/P Pulse O2 O2 Flow FiO2 Mean Ox Delivery Rate 03/18 0730 97.9 90 20 130/80 97 Room Air 03/18 0400 97.6 62 20 120/80 03/17 2218 98.0 92 20 140/80 98 Room Air 03/17 1432 98.9 84 20 118/72 94 03/17 1400 98.9 84 20 118/72 Patient seen and examined at bedside. Patient being discharged to alcohol rehabilitation program today. Please see the discharge summary for details. Discussed with patient the discharge plan. CIWA scores staying 0 prior to discharge.
== END 2017-03-18 10:50 | DRG 897 ==
LOC: ERH 18:22 → ERHI 03-14 07:23 → 2NA 03-14 07:23 → ENRESERV 03-14 08:15 → ENTRNSPT 03-14 09:50 → EDTRNSPT 03-14 09:53 → EDTRNSPTTYP 03-14 10:19 → 2NA 03-14 10:25 → CMPTRNSPT 03-14 11:45 → ENPENDDIS 03-18 08:26 → 2NA 03-18 10:50
PROVIDERS: Emergency Medicine; Preventive Medicine Public Health & General Preventive Medicine; ADMIT Internal Medicine
DX: F10.239 Alcohol dependence with withdrawal, unspecified (principal); D69.6 Thrombocytopenia, unspecified; Y90.4 Blood alcohol level of 80-99 mg/100 ml; E86.0 Dehydration
CPT/HCPCS: 2NASP; 36415; 80307; 82436; 93005; 93010; G0480; J0131; J1650; J2060; J2405; J3101; J3490; J7060